=== PATIENT | female | born 1985 | race African-American/Black ===

== ENCOUNTER 2019-11-02 03:37 | Inpatient (IN) ==
[2019-11-02] MEDS ORDERED: Lactated Ringers 1000 ml BAG 1,000 ML IV ONE (04:39)
[2019-11-02 05:28] LABS: Urine Benzodiazepine Screen None Detected (None Detect); Urine Opiates Screen None Detected (None Detect)
[2019-11-02 18:30] LABS: Hematocrit 43 % (35-47); Hemoglobin 14.9 g/dL (12.0-16.0); Mean Corpuscular HGB Conc 35 g/dL (31-36); Mean Corpuscular Hemoglobin 32 pg (27-31); Mean Corpuscular Volume 90 fL (80-97); Mean Platelet Volume 10.7 fL (7.4-10.4); Platelet Count 104 10^3/uL (150-450); Red Blood Count 4.72 10^6 /uL (3.70-4.87); Red Cell Distribution Width 18 % (10-15); White Blood Count 10.7 10^3/uL (3.5-10.8)
[2019-11-02 19:15] LABS: ABS Basophils 0.1 10^3/ul (0-0.2); ABS Eosinophils 0.1 10^3/ul (0-0.6); ABS Lymphocytes 1.3 10^3/ul (1.0-4.8); ABS Monocytes 0.7 10^3/ul (0-0.8); Eosinophil % 0.5 %; Large Platelets Present; Lymphocyte % 12.5 %
[2019-11-02] MEDS ORDERED: OBEPIDURAL 250 ML EPIDURAL ONE (19:39)
[2019-11-02] MEDS: Lactated Ringers 1000 ml BAG 1,000 ML IV SCH (20:27)
[2019-11-02] MEDS ORDERED: Oxytocin in LR 20 UNITS/1,000 ML BAG IVPB SCH (22:30)
[2019-11-03] MEDS: Lactated Ringers 1000 ml BAG 1,000 ML IV SCH (01:39)
[2019-11-03] MEDS ORDERED: ceFOXitin 2 GM IVPREMIX 2 GM/50 ML BAG IVPB ONE (05:37)
[2019-11-03] MEDS ORDERED: ceFOXitin 2 GM IVPREMIX 2 GM/50 ML BAG ONE (05:38)
[2019-11-03] MEDS ORDERED: Ondansetron 4 mg VIAL 2 MG/ML 2 ml VIAL ONE (06:16)
[2019-11-03] MEDS ORDERED: Lidocaine 2% PF 10 ML AMP ONE (06:16)
[2019-11-03] MEDS ORDERED: Oxytocin 10 UNITS/ML 1 ML VIAL ONE (06:16)
[2019-11-03] MEDS ORDERED: Morphine PF AMP (0.5MG/ML) 5 MG/10 ML AMP ONE (06:32)
[2019-11-03] MEDS ORDERED: DiMENhydriNATE IV 50 mg/ml 1 ml VIAL IV PUSH PRN (06:42)
[2019-11-03] MEDS ORDERED: HYDROmorphone 1 MG/1 ML SYRINGE IV PRN (06:42)
[2019-11-03] MEDS ORDERED: Naloxone 0.4 mg VIAL 0.4 mg/ml 1 ml VIAL IV PRN ×2 (06:42→06:44)
[2019-11-03] MEDS ORDERED: Ondansetron 4 mg VIAL 2 MG/ML 2 ml VIAL IV PRN (06:49)
[2019-11-03] MEDS ORDERED: diPHENhydraMINE IV 50 MG/ML 1 ml VIAL (BENADRYL) IV PRN (06:49)
[2019-11-03] MEDS ORDERED: oxyCODONE/Acetamin 5/325 mg TAB PO PRN (06:54)
[2019-11-03] MEDS ORDERED: Phenylephrine 40 mcg/mL 10mL (400mcg) SYRINGE ONE (06:58)
[2019-11-03] MEDS ORDERED: Witch Hazel PAD JAR TOPICAL PRN (07:07)
[2019-11-03] MEDS ORDERED: Glycerin ADULT 2.4 gm SUPP PR PRN (07:07)
[2019-11-03] MEDS ORDERED: Dibucaine 1% OINT 28.35 GM TUBE PR PRN (07:07)
[2019-11-03] MEDS ORDERED: Lactated Ringers 1000 ml BAG 1,000 ML IV SCH (08:00)
[2019-11-03] MEDS ORDERED: Oxytocin in LR 20 UNITS/1,000 ML BAG IVPB SCH (08:00)
[2019-11-03] MEDS ORDERED: Gentamicin ADULT per pharmacy 1 NOTE MISC FOLLOW UP PRN (08:25)
[2019-11-03] MEDS ORDERED: Varicella Virus Vaccine Live 0.5 ML VIAL SUBCUT ONE (09:00)
[2019-11-03] MEDS ORDERED: Gentamicin ADULT 275 MG in NS 0.9% 100 ml BAG 100 ML IVPB ONE (09:30)
[2019-11-03] MEDS: Ampicillin ADVAN 2 GM in NS 0.9% 100 ml BAG 100 ML IVPB SCH ×3 (09:39→22:15)
[2019-11-03] MEDS ORDERED: NS 0.9% 100 ml BAG 0 ML ONE (20:59)
[2019-11-03 22:59] LABS: EGFR African American 83.5 (>60)
[2019-11-04] MEDS: Ampicillin ADVAN 2 GM in NS 0.9% 100 ml BAG 100 ML IVPB SCH ×3 (04:15→16:48)
[2019-11-04 06:44] LABS: ABS Eosinophils 0.1 10^3/ul (0-0.6); ABS Lymphocytes 0.5 10^3/ul (1.0-4.8); ABS Monocytes 0.4 10^3/ul (0-0.8); Eosinophil % 0.5 %; Hematocrit 22 % (35-47); Hemoglobin 7.6 g/dL (12.0-16.0); Lymphocyte % 4.5 %; Mean Corpuscular HGB Conc 35 g/dL (31-36); Mean Corpuscular Hemoglobin 32 pg (27-31); Mean Corpuscular Volume 91 fL (80-97); Mean Platelet Volume 10.1 fL (7.4-10.4); Platelet Count 86 10^3/uL (150-450); Red Cell Distribution Width 18 % (10-15); White Blood Count 12.1 10^3/uL (3.5-10.8)
[2019-11-04] MEDS ORDERED: Gentamicin ADULT 330 MG in NS 0.9% 100 ml BAG 100 ML IVPB ONE (09:00)
[2019-11-04] MEDS: Clindamycin 900 MG/D5W BAG 900 MG/50 ML BAG IVPB SCH ×2 (12:48→23:33)
[2019-11-04 20:25] LABS: ABS Eosinophils 0.1 10^3/ul (0-0.6); ABS Lymphocytes 0.8 10^3/ul (1.0-4.8); ABS Monocytes 0.3 10^3/ul (0-0.8); Eosinophil % 0.6 %; Hematocrit 23 % (35-47); Hemoglobin 7.9 g/dL (12.0-16.0); Lymphocyte % 5.7 %; Mean Corpuscular HGB Conc 34 g/dL (31-36); Mean Corpuscular Hemoglobin 31 pg (27-31); Mean Corpuscular Volume 92 fL (80-97); Mean Platelet Volume 9.7 fL (7.4-10.4); Platelet Count 104 10^3/uL (150-450); Red Blood Count 2.55 10^6 /uL (3.70-4.87); Red Cell Distribution Width 18 % (10-15); White Blood Count 13.9 10^3/uL (3.5-10.8)
[2019-11-05] MEDS: Ampicillin ADVAN 2 GM in NS 0.9% 100 ml BAG 100 ML IVPB SCH ×3 (00:20→11:57)
[2019-11-05] MEDS: Clindamycin 900 MG/D5W BAG 900 MG/50 ML BAG IVPB SCH ×3 (07:37→23:35)
[2019-11-05 08:08] LABS: ABS Eosinophils 0.3 10^3/ul (0-0.6); ABS Monocytes 0.4 10^3/ul (0-0.8); Eosinophil % 2.4 %; Hematocrit 26 % (35-47); Hemoglobin 8.7 g/dL (12.0-16.0); Lymphocyte % 7.1 %; Mean Corpuscular HGB Conc 34 g/dL (31-36); Mean Corpuscular Hemoglobin 31 pg (27-31); Mean Corpuscular Volume 90 fL (80-97); Mean Platelet Volume 9.9 fL (7.4-10.4); Platelet Count 101 10^3/uL (150-450); Red Blood Count 2.85 10^6 /uL (3.70-4.87); Red Cell Distribution Width 18 % (10-15); White Blood Count 13.6 10^3/uL (3.5-10.8)
[2019-11-05] MEDS: Gentamicin ADULT 330 MG in NS 0.9% 100 ml BAG 100 ML IVPB SCH (09:33)
[2019-11-05] MEDS: Ampicillin ADVAN 1 GM in NS 0.9% 50 ML 50 ML IVPB SCH ×2 (17:40→18:02)
[2019-11-06] MEDS: Ampicillin ADVAN 1 GM in NS 0.9% 50 ML 50 ML IVPB SCH ×8 (00:21→18:18)
[2019-11-06] MEDS: Clindamycin 900 MG/D5W BAG 900 MG/50 ML BAG IVPB SCH ×3 (07:34→23:21)
[2019-11-06 08:03] LABS: EGFR African American 103.8 (>60); EGFR Non-African American 85.8 (>60)
[2019-11-06] MEDS: Gentamicin ADULT 330 MG in NS 0.9% 100 ml BAG 100 ML IVPB SCH (09:40)
[2019-11-07] MEDS: Ampicillin ADVAN 1 GM in NS 0.9% 50 ML 50 ML IVPB SCH ×2 (05:52)
[2019-11-07 09:07] VITALS: BP 129/76
== END 2019-11-07 14:06 | disposition home or self-care (01) | DRG 540 ==
LOC: MCHOBOUT 03:37 → MCHOB 04:50
PROVIDERS: ADMIT Midwife; ATTEND Midwife